=== PATIENT | male | born 1960 | race Caucasian/White ===

== ENCOUNTER → 2018-01-09 | Outpatient (CLI) | payer BC ==
[2014-03-11 14:04] VITALS: BP 162/90
[~2018-01-09] MED LIST: BUPR100T6 PO; LISI1TAB3 PO; METF500T5 PO
--- NOTE | 2018-01-10 08:09 | RAD ---
Pelvis with right hip, 3 views, 01/09/2018: HISTORY: Pain No fracture or dislocation is identified. There is mild narrowing of the right hip joint with subchondral sclerosis and mild marginal spurring. There is mild spurring at the left hip joint. IMPRESSION: 1. Mild degenerative change at the hip joints, right greater than left. 2. No acute bony abnormality is detected. Lumbar spine, 3 views, 01/09/2018: The lumbar vertebral heights and intervertebral disc spaces are well-maintained. There are prominent marginal spurs throughout the lumbar spine. There are moderate degenerative changes involving the facet joints in the lower lumbar spine. There is a slight associated anterolisthesis at L5-S1. No fracture or destructive bony lesion is seen. Aortic calcific plaquing is present. IMPRESSION: 1. Moderate multilevel degenerative change. 2. Slight anterolisthesis at L5-S1 due to facet joint arthropathy. Electronically signed by: Saw Hurley MD (01/10/2018 8:06 AM) [facility]
== END | disposition home or self-care (01) ==
LOC: RAD 18:19
PROVIDERS: ATTEND Physician Assistant Medical
DX: M12.88 Other specific arthropathies, not elsewhere classified, other specified site (principal); M43.17 Spondylolisthesis, lumbosacral region; G89.29 Other chronic pain
CPT/HCPCS: 72100; 73502

== ENCOUNTER → 2021-10-05 | Outpatient (CLI) | payer OTHER ==
[2014-03-11 14:04] VITALS: BP 162/90
[~2021-10-05] MED LIST changes: -LISI1TAB3 PO; +LISI1TAB35 PO; +METF500T16 PO; -METF500T5 PO
--- NOTE | 2021-10-05 13:04 | RAD ---
XR FEMUR_RIGHT, XR HIP_RT 2-3VIEWS DATE: 10/05/2021 12:32 PM INDICATION: FELL LAST NIGHT. PAIN LATERAL FEMUR. / Spl. Instructions: / History: COMPARISON: None. FINDINGS: Bones: There is no evidence of acute fracture or dislocation. Joints: Mild degenerative changes of the hips. Miscellaneous: None. IMPRESSION: No evidence of acute fracture. Electronically signed by: Yovany Magana MD (10/05/2021 1:01 PM) [id number]
--- NOTE | 2021-10-05 13:07 | RAD ---
XR KNEE _3 VIEWS_RT DATE: 10/05/2021 12:32 PM INDICATION: FELL LAST NIGHT. PAIN LATERAL FEMUR. COMPARISON: None. FINDINGS: Images are labeled right knee. Bones: There is no evidence of acute fracture or dislocation. Prominent suprapatellar and infrapatell ar enthesophytes. Joints: Mild tricompartmental degenerative changes. There is no joint effusion. Miscellaneous: None. IMPRESSION: No evidence of acute fracture of the knee, labeled right side. Electronically signed by: Yovany Magana MD (10/05/2021 1:04 PM) [id number]
== END ==
LOC: PMG 11:52
PROVIDERS: ATTEND Nurse Practitioner Family
DX: S79.921A Unspecified injury of right thigh, initial encounter (principal); M16.0 Bilateral primary osteoarthritis of hip; M17.12 Unilateral primary osteoarthritis, left knee; M76.892 Other specified enthesopathies of left lower limb, excluding foot; W19.XXXA Unspecified fall, initial encounter; Y93.89 Activity, other specified; Y92.89 Other specified places as the place of occurrence of the external cause; Y99.8 Other external cause status
CPT/HCPCS: 73502; 73552; 73562